=== PATIENT | female | born 1965 ===

== ENCOUNTER → 2019-10-05 | Outpatient (REF) | payer OTHER ==
[2019-10-08 14:12] LABS: HPV HYBRID CAPTURE II Negative (Negative)
== END ==
LOC: M LAB LCGH 12:53
PROVIDERS: ATTEND Obstetrics & Gynecology
DX: R87.610 Atypical squamous cells of undetermined significance on cytologic smear of cervix (ASC-US) (principal); R87.620 Atypical squamous cells of undetermined significance on cytologic smear of vagina (ASC-US)
CPT/HCPCS: 87624; G0123